=== PATIENT | female | born 1945 | race Caucasian/White ===

== ENCOUNTER → 2016-07-26 | Outpatient (CLI) | payer MEDICARE, BC ==
[2016-07-26 12:47] LABS: AUTOMATED NEUTROPHIL # 4.4 TH/MM3 (1.8-7.7); BASOPHIL # 0.1 TH/MM3 (0-0.2); BASOPHIL % 0.8 % (0.0-2.0); EOSINOPHIL # 0.3 TH/MM3 (0-0.4); EOSINOPHIL % 5.3 % (0.0-4.0); HEMATOCRIT 41.3 % (35.0-46.0); HEMO FLAGS DIFF FINAL; LYMPH % 19.3 % (9.0-44.0); LYMPHOCYTE # 1.3 TH/MM3 (1.0-4.8); MEAN CELL VOLUME 86.3 FL (80.0-100.0); MEAN CORPUSCULAR HEMOGLOBIN 28.6 PG (27.0-34.0); MEAN CORPUSCULAR HGB CONC 33.2 % (32.0-36.0); MONO % 6.8 % (0.0-8.0); NEUT % 67.8 % (16.0-70.0); PLATELET COUNT 261 TH/MM3 (150-450); RED BLOOD COUNT 4.78 MIL/MM3 (4.00-5.30); RED CELL DISTRIBUTION WIDTH 13.3 % (11.6-17.2); WHITE BLOOD COUNT 6.5 TH/MM3 (4.0-11.0)
[2016-07-26 13:22] LABS: WESTERGREN SEDIMENTATION RATE 23 mm/hr (0-30)
[2016-07-26 13:36] LABS: ANION GAP 8 MEQ/L (5-15); AST (GOT) 21 U/L (15-37); BICARBONATE 29.5 MEQ/L (21.0-32.0); BLOOD UREA NITROGEN 12 MG/DL (7-18); CHLORIDE 105 MEQ/L (98-107); GLOMERULAR FILTRATION RATE 83 ML/MIN (>89); GLUCOSE,FASTING 97 MG/DL (74-99); POTASSIUM 4.1 MEQ/L (3.5-5.1); SODIUM (NA) 142 MEQ/L (136-145)
[2016-07-26 13:37] LABS: ALT (GPT) 21 U/L (10-53)
[2016-07-26 13:39] LABS: ALKALINE PHOSPHATASE 71 U/L (45-117); HDL CHOLESTEROL 56.2 MG/DL (40.0-60.0); LDL CHOLESTEROL 116 MG/DL (0-99); TOTAL BILIRUBIN ADULT 0.5 MG/DL (0.2-1.0)
== END ==
LOC: ELAB 09:28
PROVIDERS: ATTEND Family Medicine
DX: M06.9 Rheumatoid arthritis, unspecified (principal); Z13.6 Encounter for screening for cardiovascular disorders
CPT/HCPCS: 36415; 80053; 80061; 85025; 85652; 86140

== ENCOUNTER → 2017-08-14 | Outpatient (CLI) | payer MEDICARE ==
[2017-08-14 12:17] LABS: AUTOMATED NEUTROPHIL # 4.1 TH/MM3 (1.8-7.7); BASOPHIL # 0.1 TH/MM3 (0-0.2); EOSINOPHIL # 0.4 TH/MM3 (0-0.4); HEMATOCRIT 41.2 % (35.0-46.0); HEMOGLOBIN 13.8 GM/DL (11.6-15.3); LYMPH % 19.6 % (9.0-44.0); LYMPHOCYTE # 1.3 TH/MM3 (1.0-4.8); MEAN CELL VOLUME 87.8 FL (80.0-100.0); MEAN CORPUSCULAR HEMOGLOBIN 29.4 PG (27.0-34.0); MEAN CORPUSCULAR HGB CONC 33.5 % (32.0-36.0); MEAN PLATELET VOLUME 9.8 FL (7.0-11.0); MONO % 8.9 % (0.0-8.0); MONOCYTE # 0.6 TH/MM3 (0-0.9); NEUT % 64.5 % (16.0-70.0); PLATELET COUNT 235 TH/MM3 (150-450); RED BLOOD COUNT 4.69 MIL/MM3 (4.00-5.30); RED CELL DISTRIBUTION WIDTH 13.5 % (11.6-17.2); WHITE BLOOD COUNT 6.4 TH/MM3 (4.0-11.0)
[2017-08-14 12:58] LABS: ALBUMIN 3.6 GM/DL (3.4-5.0); AST (GOT) 23 U/L (15-37); BICARBONATE 29.1 MEQ/L (21.0-32.0); BLOOD UREA NITROGEN 12 MG/DL (7-18); CALCIUM 8.6 MG/DL (8.5-10.1); CHLORIDE 106 MEQ/L (98-107); CREATININE 0.81 MG/DL (0.50-1.00); GLOMERULAR FILTRATION RATE 69 ML/MIN (>89); GLUCOSE,FASTING 93 MG/DL (74-99); SODIUM (NA) 140 MEQ/L (136-145)
[2017-08-14 12:59] LABS: CHOLESTEROL 172 MG/DL (120-200); TRIGLYCERIDES 123 MG/DL (42-150)
[2017-08-14 13:02] LABS: ALKALINE PHOSPHATASE 78 U/L (45-117); ALT (GPT) 22 U/L (10-53); CHOLESTEROL/ HDL RATIO 3.63 RATIO; HDL CHOLESTEROL 47.3 MG/DL (40.0-60.0); LDL CHOLESTEROL 100 MG/DL (0-99); TOTAL BILIRUBIN ADULT 0.6 MG/DL (0.2-1.0); TOTAL PROTEIN 7.3 GM/DL (6.4-8.2)
== END ==
LOC: ELAB 09:02
PROVIDERS: ATTEND Family Medicine
DX: E78.2 Mixed hyperlipidemia (principal)
CPT/HCPCS: 36415; 80053; 80061; 85025